=== PATIENT | male | born 1995 | race African-American/Black ===

== ENCOUNTER 2025-08-02 23:04 | Emergency (ER) | payer BC, OTHER ==
[~2025-08-02] VITALS: Ht 195.6 cm; Wt 205.0 kg
[2025-08-02 23:15] VITALS: O2SAT 99
[2025-08-02] MEDS ORDERED: ONDANSETRON 4MG ODT PO PRN (23:30)
[2025-08-02 23:54] LABS: HEMATOCRIT. 46.6 % (42.0-52.0); HEMOGLOBIN. 15.2 g/dL (14.0-18.0); MEAN PLATELET VOLUME 10.0 fl (7.4-10.4); PLATELET 163 x1000/uL (130-400); RED BLOOD CELL COUNT 5.51 mill/uL (4.7-6.1); RED CELL DISTRIBUTION WIDTH 13.4 % (11.6-14.6)
[2025-08-03 00:05] LABS: CREATININE 0.8 mg/dL (0.6-1.3); UREA NITROGEN BLOOD 11 mg/dL (9-23)
[2025-08-03 00:07] LABS: ASPARTATE AMINOTRANSFERASE 622 IU/L (<34); BILIRUBIN DIRECT 0.9 mg/dL (<=3.0); BILIRUBIN TOTAL 1.7 mg/dL (0.1-1.0); PROTEIN TOTAL 7.6 g/dL (6.0-8.3)
[2025-08-03] MEDS ORDERED: MAG-55 MT (01:33)
[2025-08-03] MEDS ORDERED: NAPR-1176 MT (01:33)
[2025-08-03 02:08] VITALS: BP 112/62; PULSE 85; RESP 16; TEMP 36.9; O2SAT 100
[2025-08-03 03:38] LABS: BAND% 14.0 % (1.0-6.0); LYMPHOCYTES % MANUAL 9.0 % (20.0-50.0); METAMYELOCYTES % 1.0 % (0-0); MONOCYTES % MANUAL 1.0 % (2.0-8.0); NEUTROPHILS % MANUAL 75.0 % (45.0-75.0)
[2025-08-03 03:39] LABS: PLATELET ESTIMATE NORMAL
== END 2025-08-03 02:10 | disposition home or self-care (01) ==
LOC: ER 23:04
DX: R10.13 Epigastric pain (principal); R11.0 Nausea; J45.909 Unspecified asthma, uncomplicated; Z98.84 Bariatric surgery status
CPT/HCPCS: 36415; 80048; 80076; 85025; 99283